=== PATIENT | female | born 1990 | race Caucasian/White ===

== ENCOUNTER 2016-07-14 10:00 | Inpatient (IN) | payer MEDICAID ==
[2016-07-14] VITALS (11 sets, daily range): BP systolic 142–156; BP diastolic 79–106; PULSE 61–90; RESP 18–22; TEMP 98.4; O2SAT 97–99
[~2016-07-14 10:00] MED LIST: LEVEMIR SC; METF500 PO; NOVOLOGP2 SQ
[2016-07-14] MEDS ORDERED: LACTATED RINGER'S 1000 ML INJ 1,000 ML IV ONE (10:12)
[2016-07-14] MEDS ORDERED: OXYTOCIN 10 UNIT/ML AMP ONE (10:22)
--- NOTE | 2016-07-14 10:24 | HHI.HP ---
HPI Chief Complaint vaginal bleeding Date Seen: Jul 14, 2016 Time Seen: 10:02 (Trey Henry MD R1) Travel History International Travel<30 Days: No Contact w/Intl Traveler<30Days: No (Trey Henry MD R1) History of Present Illness HPI 26 y/o at 37/2 weeks presents with vaginal bleeding. She was in ultrasound this morning for kick monitoring and when she went to the bathroom, there was a gush of blood. No history of previous vaginal bleeding. Experiencing severe pelvic pain/pressure. Denies any other symptoms. Endorses movement. No contractions. No loss of fluids. No problems with this . History of diabetes. 3 miscarriages, all around 8 weeks gestation. Denies headache, changes in vision, swelling in legs, chest pain, SOB , upper abdominal pain. Para: 0 : 4 Miscarriage: 3 (Trey Henry MD) History Past Medical History Narrative Medical Diabetes (Trey Henry MD) Obstetric History Obstetric History Previous three pregnancies were miscarriages around 8 weeks. No problems with this (Trey Henry MD) Past Surgical History Surgical History: No Previous Surgery (Trey Henry MD) Family History Family History: Negative (Trey Henry MD) Social History Alcohol Use: No Tobacco Use: No Substance Abuse: No (Trey Henry MD R1) Allergies-Medications (Allergen,Severity, Reaction): Coded Allergies: No Known Allergies (Unverified , 11/25/15) Home Meds Reported Medications Insulin Aspart (Novolog)100 Units/ML Inj1 Units SQ TIDAC 11/25/15 Insulin Detemir (Levemir) Inj10 Units SC HS 11/25/15 Metformin 500 mg (Glucophage 500 mg)500 Mg Txs128 Mg PO DAILY 09/05/15 Review of Systems General / Constitutional: Weight Gain, No: Fever, Weight Loss, Chills Eyes: No: Blurred Vision, Visual changes HENT: No: Headaches, Lightheadedness Cardiovascular: No: Irregular Rhythm, Chest Pain or Discomfort, Palpitations Respiratory: No: Cough, Short of Breath Gastrointestinal: No: Nausea, Vomiting, Diarrhea, Abdominal Pain, Constipation Genitourinary: Pelvic Pain, No: Urgency, Frequency, Dysuria, Hematuria Musculoskeletal: Cramping, No: Weakness Skin: No Rash, No Itching Neurologic: No: Weakness, Dizziness Psychiatric: No: Anxiety, Depression Endocrine: No: Heat Intolerance, Cold Intolerance Hematologic/Lymphatic: No Easy Bruising, No Lymph Node Enlargement (Trey Henry MD R1) Physical Exam Narrative GENERAL: Well-nourished, well-developed patient. SKIN: Warm and dry. HEAD: Normocephalic and atraumatic. EYES: No scleral icterus. No injection or drainage. ENT: No nasal drainage noted. Mucous membranes pink. Airway patent. NECK: Supple, trachea midline. No JVD. CARDIOVASCULAR: Regular rate and rhythm without murmurs, gallops, or rubs. RESPIRATORY: Breath sounds equal bilaterally. No accessory muscle use. ABDOMEN/GI: Abdomen soft, non-tender, bowel sounds present, no rebound, no guarding Gravid to 37 weeks size Fundal Height: 37 GENITOURINARY: External Genitalia: intact and normal in appearance. Alan blood. No active bleeding FHT's: Category: 1 Baseline: 140 Reactive: yes Variability: moderate Decels: none EXTREMITIES: No cyanosis or edema. BACK: Nontender without obvious deformity. No CVA tenderness. NEUROLOGICAL: Awake and alert. Motor and sensory grossly within normal limits. Five out of 5 muscle strength in all muscle groups. Normal speech. (Trey Henry MD R1) Data Data Vital Signs Reviewed: Yes Orders Ob (2e) Additional Admit Info (07/14/16 10:14) Admit To Inpatient (07/14/16 ) Code Status (07/14/16 10:12) Vital Signs (Adult) .ON ADMISSION (07/14/16 10:12) Activity Oob Ad Chela (07/14/16 10:12) ^ Heart (07/14/16 10:12) Urinary Catheter Management ESMER.Q8H (07/14/16 10:12) ^ Preps (07/14/16 10:12) Scd / Audie / Foot Pump ESMER.QSHIFT (07/14/16 10:12) ^ Ultrasound For Locatio (07/14/16 10:12) Diet Npo (07/14/16 Lunch) Lactated Ringer's 1000 Ml Inj (Lr 1000 M (07/14/16 10:12) Lactated Ringer's 1000 Ml Inj (Lr 1000 M (07/14/16 10:42) Citric Acid-Sodium Citrate Liq (Bicitra (07/14/16 11:45) Type And Screen (07/14/16 10:12) Complete Blood Count With Diff (07/14/16 10:12) Urinalysis - C+S If Indicated (07/14/16 10:12) Cefazolin Inj (Ancef Inj) (07/14/16 11:15) Inpatient Certification (07/14/16 ) (Trey Henry MD R1) Assessment/Plan Assessment and Plan 26 y/o at 37/2 weeks presents with vaginal bleeding. 1. IUP with placental abruption - POC ultrasound - Urgent primary - heart monitoring - CBC, UA, UDS sdw Dr. Sapp (Trey Henry MD R1) Attending Attestation Patient seen and examined with the resident under direct supervision agree with the assessment and plan. (Keron Sapp MD) Trey Henry MD R1 Jul 14, 2016 10:24 Keron Sapp MD Jul 14, 2016 17:36
[2016-07-14] MEDS ORDERED: ceFAZolin INJ 1,000 MG VIAL ONE (10:27)
[2016-07-14 10:40] LABS: AUTOMATED NEUTROPHIL # 7.8 TH/MM3 (1.8-7.7); BASOPHIL % 0.5 % (0.0-2.0); EOSINOPHIL # 0.1 TH/MM3 (0-0.4); EOSINOPHIL % 0.7 % (0.0-4.0); HEMATOCRIT 38.8 % (35.0-46.0); HEMO FLAGS DIFF FINAL; LYMPH % 19.7 % (9.0-44.0); LYMPHOCYTE # 2.1 TH/MM3 (1.0-4.8); MEAN CELL VOLUME 83.5 FL (80.0-100.0); MEAN CORPUSCULAR HEMOGLOBIN 28.2 PG (27.0-34.0); MEAN CORPUSCULAR HGB CONC 33.8 % (32.0-36.0); MONO % 6.1 % (0.0-8.0); PLATELET COUNT 345 TH/MM3 (150-450); RED BLOOD COUNT 4.64 MIL/MM3 (4.00-5.30); WHITE BLOOD COUNT 10.7 TH/MM3 (4.0-11.0)
[2016-07-14] MEDS ORDERED: LACTATED RINGER'S 1000 ML INJ 1,000 ML IV SCH ×2 (10:42→16:44)
--- NOTE | 2016-07-14 10:42 | PD ---
History of Present Illness Date Seen: Jul 14, 2016 Time Seen: 10:03 History of Present Illness HPI Chief Complaint vaginal bleeding Date Seen: Jul 14, 2016 Time Seen: 10:02 Travel History International Travel<30 Days: No Contact w/Intl Traveler<30Days: No History of Present Illness HPI 26 y/o at 37/2 weeks presents with vaginal bleeding. She was in ultrasound this morning for kick monitoring and when she went to the bathroom, there was a gush of blood. No history of previous vaginal bleeding. Experiencing severe pelvic pain/pressure. Denies any other symptoms. Endorses movement. No contractions. No loss of fluids. No problems with this . History of diabetes. 3 miscarriages, all around 8 weeks gestation. Denies headache, changes in vision, swelling in legs, chest pain, SOB , upper abdominal pain. Para: 0 : 4 Miscarriage: 3 History (Limited) History Past Medical History Narrative Medical Diabetes Obstetric History Obstetric History Previous three pregnancies were miscarriages around 8 weeks. No problems with this Past Surgical History Surgical History: No Previous Surgery Family History Family History: Negative Social History Alcohol Use: No Tobacco Use: No Substance Abuse: No Allergies-Medications Allergies-Medications (Allergen,Severity, Reaction): Coded Allergies: No Known Allergies (Unverified , 11/25/15) Home Meds Reported Medications Insulin Aspart (Novolog)100 Units/ML Inj1 Units SQ TIDAC 11/25/15 Insulin Detemir (Levemir) Inj10 Units SC HS 11/25/15 Metformin 500 mg (Glucophage 500 mg)500 Mg [id number] Mg PO DAILY 09/05/15 ROS Review of Systems General / Constitutional: Weight Gain, No: Fever, Weight Loss, Chills Eyes: No: Blurred Vision, Visual changes HENT: No: Headaches, Lightheadedness Cardiovascular: No: Irregular Rhythm, Chest Pain or Discomfort, Palpitations Respiratory: No: Cough, Short of Breath Gastrointestinal: No: Nausea, Vomiting, Diarrhea, Abdominal Pain, Constipation Genitourinary: Pelvic Pain, No: Urgency, Frequency, Dysuria, Hematuria Musculoskeletal: Cramping, No: Weakness Skin: No Rash, No Itching Neurologic: No: Weakness, Dizziness Psychiatric: No: Anxiety, Depression Endocrine: No: Heat Intolerance, Cold Intolerance Hematologic/Lymphatic: No Easy Bruising, No Lymph Node Enlargement Physical Exam Physical Exam Narrative GENERAL: Well-nourished, well-developed patient. SKIN: Warm and dry. HEAD: Normocephalic and atraumatic. EYES: No scleral icterus. No injection or drainage. ENT: No nasal drainage noted. Mucous membranes pink. Airway patent. NECK: Supple, trachea midline. No JVD. CARDIOVASCULAR: Regular rate and rhythm without murmurs, gallops, or rubs. RESPIRATORY: Breath sounds equal bilaterally. No accessory muscle use. ABDOMEN/GI: Abdomen soft, non-tender, bowel sounds present, no rebound, no guarding Gravid to 37 weeks size Fundal Height: 37 GENITOURINARY: External Genitalia: intact and normal in appearance. Alan blood. No active bleeding FHT's: Category: 1 Baseline: 140 Reactive: yes Variability: moderate Decels: none EXTREMITIES: No cyanosis or edema. BACK: Nontender without obvious deformity. No CVA tenderness. NEUROLOGICAL: Awake and alert. Motor and sensory grossly within normal limits. Five out of 5 muscle strength in all muscle groups. Normal speech. Data Data Data Vital Signs Reviewed: Yes Orders Ob (2e) Additional Admit Info (07/14/16 10:14) Admit To Inpatient (07/14/16 ) Code Status (07/14/16 10:12) Vital Signs (Adult) .ON ADMISSION (07/14/16 10:12) Activity Oob Ad Chela (07/14/16 10:12) ^ Heart (07/14/16 10:12) Urinary Catheter Management ESMER.Q8H (07/14/16 10:12) ^ Preps (07/14/16 10:12) Scd / Audie / Foot Pump ESMER.QSHIFT (07/14/16 10:12) ^ Ultrasound For Locatio (07/14/16 10:12) Diet Npo (07/14/16 Lunch) Lactated Ringer's 1000 Ml Inj (Lr 1000 M (07/14/16 10:12) Lactated Ringer's 1000 Ml Inj (Lr 1000 M (07/14/16 10:42) Citric Acid-Sodium Citrate Liq (Bicitra (07/14/16 11:45) Type And Screen (07/14/16 10:12) Complete Blood Count With Diff (07/14/16 10:12) Urinalysis - C+S If Indicated (07/14/16 10:12) Cefazolin Inj (Ancef Inj) (07/14/16 11:15) Inpatient Certification (07/14/16 ) OB Assessment/Plan Assessment/Plan Assessment and Plan 26 y/o at 37/2 weeks presents with vaginal bleeding. 1. IUP with placental abruption - POC ultrasound - Urgent primary - heart monitoring - CBC, UA, UDS sdw Dr. Sapp (Trey Henry MD R1) Attestation Patient seen and examined with the resident under direct supervision, I agree with the assessment and plan. (Keron Sapp MD) Trey Henry MD R1 Jul 14, 2016 10:42 Keron Sapp MD Jul 14, 2016 17:38
[2016-07-14 10:46] LABS: BACTERIA, URINE RARE /hpf; BLOOD, URINE LARGE (NEG); GLUCOSE,URINE 1000 mg/dL (NEG); KETONE, URINE 10 mg/dL (NEG); NITRITE,URINE NEG (NEG); PH, URINE 6.5 (5.0-8.5); SQUAMOUS EPITHELIAL CELL URINE 1 /hpf (0-5); URINE COLOR YELLOW (YELLW/STRAW)
[2016-07-14 10:50] LABS: COMMENT (UR) CULTURE INDICATED; CULTURE IF INDICATED CULTURE INDICATED
[2016-07-14] MEDS ORDERED: ACETAMINOPHEN 1000 MG/100 ML VIAL IV ONE ×2 (10:52→11:45)
[2016-07-14 10:58] LABS: AMPHETAMINE, URINE NEG (NEG); BARBITURATES, URINE NEG (NEG); COCAINE, URINE NEG (NEG)
[2016-07-14 11:30] LABS: BLOOD GAS BASE EXCESS 0.2 mmol/L (-2-2); BLOOD GAS O2 HGB SATURATION 13 % (90-100); CORD BLOOD GAS HCO3 27 mmol/L (21-29); CORD BLOOD GAS PCO2 68 mmHG (34-78); CORD BLOOD GAS PH 7.22 (7.14-7.42)
[2016-07-14 11:31] LABS: CORD BLOOD GAS PO2 12 mmHG (3.0-40.0); DRAW SITE CORD BLOOD; STAT NO
[2016-07-14] MEDS ORDERED: ONDANSETRON HCL 4 MG/2 ML VIAL ONE (11:39)
[2016-07-14] MEDS ORDERED: MORPHINE SULFATE PF 5 MG/10 ML VIAL ONE (11:39)
[2016-07-14] MEDS ORDERED: SODIUM CHLORIDE 0.9% FLUSH 5 ML FLUSH IV PRN (11:45)
[2016-07-14] MEDS ORDERED: OXYTOCIN 30 UNITS-500ML PREMIX 500 ML IV ONE (11:45)
[2016-07-14] MEDS ORDERED: CITRIC ACID-SODIUM CITRATE LIQ 30 ML UDC PO SCH (11:45)
[2016-07-14] MEDS ORDERED: oxyCODONE/ACETAMINOPHEN 5 MG/325 MG TAB PO PRN (11:45)
[2016-07-14] MEDS: SODIUM CHLORIDE 0.9% FLUSH 5 ML FLUSH IV SCH ×2 (11:45→20:05)
[2016-07-14] MEDS ORDERED: ACETAMINOPHEN 325 MG TAB PO PRN (11:45)
[2016-07-14] MEDS ORDERED: DEXTROSE 50% IN WATER 50 ML VIAL(D50) IV PUSH PRN (12:00)
[2016-07-14] MEDS ORDERED: GLUCAGON 1 MG/ML VIAL OTHER PRN (12:00)
[2016-07-14] MEDS ORDERED: KETOROLAC TROMETHAMINE 60 MG/2 ML (IM) VIAL IM PRN (12:00)
[2016-07-14] MEDS ORDERED: OXYTOCIN 30 UNITS-500ML PREMIX 500 ML ONE (12:14)
[2016-07-14 12:27] LABS: ANION GAP 8 MEQ/L (5-15); AST (GOT) 10 U/L (15-37); BICARBONATE 24.8 MEQ/L (21.0-32.0); BLOOD UREA NITROGEN 11 MG/DL (7-18); CHLORIDE 102 MEQ/L (98-107); GLOMERULAR FILTRATION RATE 108 ML/MIN (>89); POTASSIUM 4.3 MEQ/L (3.5-5.1); SODIUM (NA) 135 MEQ/L (136-145)
[2016-07-14 12:35] LABS: ALKALINE PHOSPHATASE 108 U/L (45-117); ALT (GPT) 14 U/L (10-53); TOTAL BILIRUBIN ADULT 0.1 MG/DL (0.2-1.0)
[2016-07-14] MEDS: LABETALOL HCL 200 MG TAB PO SCH (13:00)
--- NOTE | 2016-07-14 13:02 | PD.OP ---
Operative Report Date of Surgery: Jul 14, 2016 Preoperative Diagnosis: (1) 37 weeks gestation of (2) Type 2 diabetes mellitus treated with insulin (3) Placental abruption in third trimester (4) Obesity affecting in third trimester 26-year-old at 37 weeks and 2 days of gestation presents to labor and delivery with complaints of sudden onset of profuse vaginal bleeding and abdominal pain consistent with possible abruption placenta, type 2 diabetes on insulin, obesity. Postoperative Diagnosis: (1) 37 weeks gestation of (2) Type 2 diabetes mellitus treated with insulin (3) Placental abruption in third trimester (4) Obesity affecting in third trimester Same Procedure: Primary low segment transverse section via Pfannenstiel skin incision. Anesthesia: Spinal Anesthesiologist: Luis Angel ([employer]) Surgeon: Keron Sapp M.D Siphoner(s): Rosemary (technical associate) Resident Surgeon: None Operation and Findings: Estimated blood loss: 700 mL, urine output is 350 mL of clear urine at the end of the procedure, IV fluids 2400 mL of Ringer's lactate. Complications: none Specimen: Placenta is sent to pathology Findings: A live male in cephalic presentation, Apgars 8 at 1 minute and 9 at 5 minutes, nursery team present at delivery, weight is 8 lbs. 3 oz., 3705 grams. There is blood present in the abdominal cavity, an area of detached placenta with blood clots is noted consistent with abruption. Normal uterus, tubes and ovaries. Time of delivery 10.59 hours Indications: 26-year-old at 37 weeks and 2 days of gestation, patient presented today to OB diagnostics for ultrasound and was noted to have sudden onset of profuse vaginal bleeding patient was transferred to labor and delivery , patient also complaining of severe abdominal pain associated with vaginal bleeding, a presumptive diagnosis of placenta abruption was made and the need for a primary section was discussed with the patient and the family.The risks,benefits, indications and alternatives were reviewed with the patient including but not limited to increased risks of bleeding, infection, damage to the bladder, bowel, ureters, blood vessels and nerves. Increased risks of DVT and PE and risk of were discussed, all questions were answered and informed consent was obtained. Procedures: After informed consent was obtained the patient was taken to the operating room where spinal anesthesia was obtained without difficulty. She was then prepped and draped in the normal sterile fashion in the dorsal supine position with a leftward tilt. A Pfannenstiel skin incision was then made with the scalpel and carried through to the underlying layer of fascia with the Bovie. The fascia was incised in the midline and incision extended laterally with the Wolfe scissors. The superior aspect of the fascial incision was then grasped with Sherron clamps, elevated, and the underlying rectus muscles dissected off bluntly. Attention was then turned to the inferior aspect of this incision which in in a similar fashion was grasped, tented up with the Sherron clamps and the rectus muscle dissected off bluntly. The rectus muscles were then in the midline and the peritoneum identified, tented up, and entered sharply with the Metzenbaum scissors. The peritoneal incision was then extended superiorly and inferiorly with good visualization of the bladder. Intraperitoneal blood was noted. The bladder blade was then inserted and the vesicouterine peritoneum identified, grasped with the pickups, and entered sharply with the Metzenbaum scissors. This incision was then extended laterally and the bladder flap created digitally. The bladder blade was then reinserted and the lower uterine segment incised in a transverse fashion with the scalpel. The uterine incision was then extended laterally with the bandage scissors. The bladder blade was removed and the infant's head was delivered atraumatically. The mouth and nose were suctioned with a bulb suction and the cord was clamped and cut. The infant was handed off to the waiting nursing team. Cord blood was obtained. The placenta was then removed manually, the uterus was externalized and cleared of all clots and debris. An area of abruption was noted on the placental surface with several blood clots, the placenta was sent to pathology. The uterine incision was then repaired with 0 Vicryl in a running locked fashion. A second layer of the same suture was used to obtain excellent hemostasis. The bladder flap was repaired with 3-0 Vicryl in a running stitch. Excellent hemostasis was noted, the uterus and the tubes were then returned to the abdomen. The gutters were cleared of all clots and debris and the peritoneum was closed with the 2-0 chromic suture. The fascia was reapproximated with 0 Vicryl in a running fashion. The skin was closed in a subcuticular fashion using 3-0 Monocryl. Dermabond was applied to the incision as well as Steri-Strips. The patient tolerated the procedure well. All sponges, laps, needle and instrument counts were correct 2. The patient received 2 g of Ancef prior to surgery. The patient was taken to the recovery area in stable condition. Keron Sapp MD Jul 14, 2016 13:02
[2016-07-14] MEDS: EPIDURAL-DIPHENHYDRAMINE HCL 50 MG CAP PO PRN (16:28)
[2016-07-14] MEDS: INSULIN NovoLIN REGULAR SUPPLEMENTAL SCALE SQ SCH ×2 (16:28→21:00)
[2016-07-14] MEDS ORDERED: EPIDURAL-NO SYSTEMIC NARCOTICS XX PRN (16:30)
[2016-07-14] MEDS ORDERED: EPIDURAL-DIPHENHYDRAMINE HCL 50 MG/ML VIAL IV PUSH PRN (16:30)
[2016-07-14] MEDS ORDERED: EPIDURAL-DO NOT ADMINISTER ANTICOAGULANTS XX PRN (16:30)
[2016-07-14] MEDS ORDERED: EPIDURAL-NALOXONE HCL 0.4 MG/ML AMP IV PRN (16:30)
[2016-07-14 16:56] LABS: HEMOGLOBIN A1a 1.2 %; HEMOGLOBIN A1b 1.1 %; HEMOGLOBIN F 1.7 %; HEMOGLOBIN LA1C 3.7 %; HEMOGLOBIN P3 5.2 %
--- NOTE | 2016-07-14 17:28 | PD.CONS ---
[facility] By [facility] Powell Reason for Consult Diabetes mellitus type 2 status post Primary Care Physician No Primary Care Physician Diagnoses: History of Present Illness This is a pleasant 26-year-old female patient with a past medical history which includes diabetes mellitus type 2. Patient is status post section 07/14 at 1302. Patient reports her blood sugar was well-controlled at home fasting blood glucose between 80 and 90 and 2 hour postprandial glucose 100- 120. Patient reports she was taking insulin at home both Novolin R and Novolin N at home. Patient reports she took 18 units of Novolin R and 18 units of Novolin and with breakfast, 16 units of Novolin R with lunch then 12 units of Novolin R and 26 units Novolin N with dinner. Patient reports she feels well at this time she had a mild headache which resolved after Toradol. Patient's blood sugar earlier this a.m. at 10:30 was noted to be 320 recheck 1600 noted to be 165 per RN patient did not receive any glucose treatment. Patient denies chest pain shortness of breath abdominal pain diarrhea constipation fevers or chills. Review of Systems Other All other systems reviewed and negative except as mentioned in history of present illness Past Family Social History Allergies: Coded Allergies: No Known Allergies (Unverified , 11/25/15) Past Medical History Diabetes mellitus type 2 Past Surgical History Denies prior surgeries Reported Medications Novolog (Insulin Aspart) 100 Units/ML Inj 1 Units SQ TIDAC Levemir (Insulin Detemir) Inj 10 Units SC HS Active Ordered Medications Current Medications Medications (Trade) Dose Ordered Sig/Rosetta Route Start Time Stop Time Status Last Admin Lactated Ringer's 1,000 ml @ 150 mls/hr Q6H40M IV 07/14/16 10:42 (Lr 1000 ml Inj) 1,000 ml @ 100 mls/hr Q10H IV 07/14/16 16:44 07/15/16 12:43 (NS Flush) 2 ml BID IV 07/14/16 11:45 (NS Flush) 2 ml UNSCH PRN IV 07/14/16 11:45 (Tylenol) 650 mg Q6H PRN PO 07/14/16 11:45 (Motrin) 600 mg Q6H PRN PO 07/14/16 11:45 (Toradol Inj) 30 mg Q6H PRN IM 07/14/16 12:00 07/15/16 11:59 07/14/16 15:14 (Percocet 5-325 Mg) 1 tab Q4H PRN PO 07/14/16 11:45 Oxycodone/ Acetaminophen 2 tab 2 tab Q4H PRN PO 07/14/16 11:45 (Ancef Inj/NS Inj) 100 ml @ 200 mls/hr Q8H IV 07/14/16 19:00 07/15/16 03:29 (M-M-R Ii Inj) 0.5 ml ONCE ONCE SQ 07/15/16 16:00 07/15/16 16:01 (Boostrix Inj) 0.5 ml ONCE ONCE IM 07/15/16 16:00 07/15/16 16:01 (Zofran Inj) 4 mg Q6H PRN IV PUSH 07/14/16 11:45 (D50w (Vial) Inj) 25 ml UNSCH PRN IV PUSH 07/14/16 12:00 (Glucagon Inj) 1 mg UNSCH PRN OTHER 07/14/16 12:00 (Trandate) 200 mg Q12H PO 07/14/16 13:00 07/14/16 13:00 Miscellaneous Information NO SYSTEMIC NARCOTICS TO BE GIVEN FO... UNSCH PRN XX 07/14/16 16:30 07/15/16 16:29 (Narcan Inj) 0.4 mg UNSCH PRN IV 07/14/16 16:30 07/15/16 16:29 (Benadryl Inj) 25 mg Q6H PRN IV PUSH 07/14/16 16:30 07/15/16 16:29 (Benadryl) 50 mg Q6H PRN PO 07/14/16 16:30 07/15/16 16:29 07/14/16 16:28 Miscellaneous Information ALL NURSING DEPARTMENTS UNSCH PRN XX 07/14/16 16:30 07/15/16 16:29 (Ofirmev Inj) 1 mg Q8H IV 07/14/16 20:00 07/15/16 04:01 Family History Patient reports all the women in her family have diabetes mellitus including mother and grandmother Social History Prior to patient reports she drank alcohol occasionally she has not EtOH in the past 37 weeks. Denies tobacco use or illicit drug use Physical Exam Vital Signs Vital Signs Date Time Temp Pulse Resp B/P Pulse Ox O2 Delivery O2 Flow Rate FiO2 07/14/16 13:03 62 18 143/97 99 07/14/16 12:55 147/82 07/14/16 12:55 147/92 07/14/16 12:52 98.4 18 148/94 99 07/14/16 12:52 61 148/97 07/14/16 12:33 65 18 99 07/14/16 12:33 143/87 07/14/16 12:33 153/101 07/14/16 12:23 144/95 07/14/16 12:18 149/93 07/14/16 12:18 67 18 97 07/14/16 12:03 67 18 142/91 99 07/14/16 11:54 142/79 07/14/16 10:15 82 154/96 07/14/16 10:12 90 156/106 07/14/16 10:00 22 Physical Exam GENERAL: This is a well-nourished, well-developed patient, in no apparent distress. SKIN: No rashes, ecchymoses or lesions. Cool and dry. HEAD: Atraumatic. Normocephalic. No temporal or scalp tenderness. EYES: Extraocular motions intact. No scleral icterus. No injection or drainage. ENT: Nose without bleeding, purulent drainage or septal hematoma. Throat without erythema, tonsillar hypertrophy or exudate. Uvula midline. Airway patent. NECK: Trachea midline. No JVD or lymphadenopathy. Supple, nontender, no meningeal signs. CARDIOVASCULAR: Regular rate and rhythm without murmurs, gallops, or rubs. RESPIRATORY: Clear to auscultation. Breath sounds equal bilaterally. No wheezes , rales, or rhonchi. GASTROINTESTINAL: Abdomen soft, non-tender, nondistended. No guarding. MUSCULOSKELETAL: Extremities without clubbing, cyanosis, or edema. No joint tenderness, effusion, or edema noted. No calf tenderness. Negative Homans sign bilaterally. NEUROLOGICAL: Awake and alert. Motor and sensory grossly within normal limits. Five out of 5 muscle strength in all muscle groups. Normal speech. Laboratory Laboratory Tests Test 07/14/16 07/14/16 10:30 10:57 White Blood Count 10.7 Red Blood Count 4.64 Hemoglobin 13.1 Hematocrit 38.8 Mean Corpuscular Volume 83.5 Mean Corpuscular Hemoglobin 28.2 Mean Corpuscular Hemoglobin 33.8 Concent Red Cell Distribution Width 13.0 Platelet Count 345 Mean Platelet Volume 8.5 Neutrophils (%) (Auto) 73.0 Lymphocytes (%) (Auto) 19.7 Monocytes (%) (Auto) 6.1 Eosinophils (%) (Auto) 0.7 Basophils (%) (Auto) 0.5 Neutrophils # (Auto) 7.8 Lymphocytes # (Auto) 2.1 Monocytes # (Auto) 0.7 Eosinophils # (Auto) 0.1 Basophils # (Auto) 0.0 CBC Comment DIFF FINAL Differential Comment Urine Color YELLOW Urine Turbidity CLEAR Urine pH 6.5 Urine Specific [place] 1.026 Urine Protein NEG Urine Glucose (UA) 1000 Urine Ketones 10 Urine Occult Blood LARGE Urine Nitrite NEG Urine Bilirubin NEG Urine Urobilinogen LESS THAN 2.0 Urine Leukocyte Esterase NEG Urine RBC Urine WBC 13 Urine Squamous Epithelial 1 Cells Urine Bacteria RARE Microscopic Urinalysis Comment CULTURE INDICATED Sodium Level 135 Potassium Level 4.3 Chloride Level 102 Carbon Dioxide Level 24.8 Anion Gap 8 Blood Urea Nitrogen 11 Creatinine 0.67 Estimat Glomerular Filtration 108 Rate Random Glucose 320 Calcium Level 9.7 Total Bilirubin 0.1 Aspartate Amino Transf 10 (AST/SGOT) Alanine Aminotransferase 14 (ALT/SGPT) Alkaline Phosphatase 108 Total Protein 7.1 Albumin 2.6 Urine Opiates Screen NEG Urine Barbiturates Screen NEG Urine Amphetamines Screen NEG Urine Benzodiazepines Screen NEG Urine Cocaine Screen NEG Urine Cannabinoids Screen NEG Blood Type A POSITIVE Antibody Screen NEGATIVE Blood Bank Comment Blood Gas Puncture Site CORD BLOOD Blood Gas Base Excess 0.2 Blood Gas Oxygen Saturation 13 Cord Blood HCO3 27 Cord Arterial Blood pH 7.22 Cord Arterial Blood PCO2 68 Cord Arterial Blood PO2 12 Date/Time Procedure Status Source Growth 07/14/16 10:30 Urine Culture Received Urine Clean Catch Pending Result Diagram: 07/14/16 1030 07/14/16 1030 Assessment and Plan Assessment and Plan This is a pleasant 26-year-old female patient with a past medical history which includes diabetes mellitus type 2. Patient is status post section 07/14 at 1302. Patient reports her blood sugar was well-controlled at home fasting blood glucose between 80 and 90 and 2 hour postprandial glucose 100- 120. Patient reports she was taking insulin at home both Novolin R and Novolin N at home. Patient reports she took 18 units of Novolin R and 18 units of Novolin and with breakfast, 16 units of Novolin R with lunch then 12 units of Novolin R and 26 units Novolin N with dinner. Patient reports she feels well at this time she had a mild headache which resolved after Toradol. Patient's blood sugar earlier this a.m. at 10:30 was noted to be 320 recheck 1600 noted to be 165 per RN patient did not receive any glucose treatment. management per primary [employer] service Diabetes mellitus type 2- agree with and continue metered dose sliding scale insulin coverage Check hemoglobin A1c Thank you for consulted us and allowing us to dissipate in the care of this patient we will follow along with you Discussed plan of care with patient and at bedside Written by Bing Moya, acting as scribe for Dr. Watson on 07/14/16 at 17:28. The documentation accurately reflects the work performed [id number] by me on 07/14/16 at 17:28. Bing Moya Jul 14, 2016 17:28 Nitin Medrano MD Jul 31, 2016 11:05
[2016-07-14] MEDS: ONDANSETRON HCL 4 MG/2 ML VIAL IV PUSH PRN (18:25)
[2016-07-14] MEDS: ACETAMINOPHEN 1000 MG/100 ML VIAL IV SCH (20:05)
[2016-07-14] MEDS ORDERED: OXYTOCIN 30 UNITS-500ML PREMIX 500 ML IV PRN (21:45)
[2016-07-15] MEDS: LABETALOL HCL 200 MG TAB PO SCH ×2 (00:49→13:00)
[2016-07-15] MEDS: ACETAMINOPHEN 1000 MG/100 ML VIAL IV SCH (03:36)
[2016-07-15] MEDS: EPIDURAL-DIPHENHYDRAMINE HCL 50 MG CAP PO PRN ×2 (03:36→13:36)
[2016-07-15 06:08] LABS: AUTOMATED NEUTROPHIL # 8.1 TH/MM3 (1.8-7.7); BASOPHIL # 0.1 TH/MM3 (0-0.2); BASOPHIL % 0.6 % (0.0-2.0); EOSINOPHIL # 0.1 TH/MM3 (0-0.4); EOSINOPHIL % 0.7 % (0.0-4.0); HEMO FLAGS DIFF FINAL; LYMPH % 17.2 % (9.0-44.0); LYMPHOCYTE # 1.9 TH/MM3 (1.0-4.8); MEAN CELL VOLUME 83.7 FL (80.0-100.0); MEAN CORPUSCULAR HEMOGLOBIN 27.8 PG (27.0-34.0); MEAN CORPUSCULAR HGB CONC 33.2 % (32.0-36.0); MONO % 8.4 % (0.0-8.0); NEUT % 73.1 % (16.0-70.0); PLATELET COUNT 274 TH/MM3 (150-450); RED BLOOD COUNT 3.83 MIL/MM3 (4.00-5.30); WHITE BLOOD COUNT 11.1 TH/MM3 (4.0-11.0)
[2016-07-15] MEDS: INSULIN NovoLIN REGULAR SUPPLEMENTAL SCALE SQ SCH ×3 (07:00→20:58)
--- NOTE | 2016-07-15 07:18 | HHI.OB ---
Subjective Remarks 26 year old POD # 1, delivered via emergency for placental abruption. No events overnight. She is resting in bed. She has generalized itching improved with benadryl. She reports that none of the medications she is getting is new for her. She does not feel any throat swelling and has no rash. Lochia is amount of menstruation. control: uncertain at this time. Pain well controlled. Incision site has no problems. She is walking. No flatus or bowel movement. Nausea resolved. (Diaz Rachel MD R2) Objective Vitals/I&O Vital Signs Date Time Temp Pulse Resp B/P Pulse Ox O2 Delivery O2 Flow Rate FiO2 07/14/16 21:15 18 07/14/16 13:03 62 18 143/97 99 07/14/16 12:55 147/82 07/14/16 12:55 147/92 07/14/16 12:52 98.4 18 148/94 99 07/14/16 12:52 61 148/97 07/14/16 12:33 65 18 99 07/14/16 12:33 143/87 07/14/16 12:33 153/101 07/14/16 12:23 144/95 07/14/16 12:18 149/93 07/14/16 12:18 67 18 97 07/14/16 12:03 67 18 142/91 99 07/14/16 11:54 142/79 07/14/16 10:15 82 154/96 07/14/16 10:12 90 156/106 07/14/16 10:00 22 (Diaz Rachel MD R2) Result Diagram: 07/15/16 0444 07/14/16 1030 Objective Remarks GENERAL: Well-nourished, well-developed patient. CARDIOVASCULAR: Regular rate and rhythm without murmurs, gallops, or rubs. RESPIRATORY: Breath sounds equal bilaterally. No accessory muscle use. ABDOMEN/GI: Abdomen soft, non-tender, bowel sounds present. Incision: Clean, dry and intact. Fundus: Firm, non-tender at umbilicus. GENITOURINARY: Light to moderate bleeding. EXTREMITIES: No cyanosis or edema, non-tender, without signs of DVT. Medications and IVs Current Medications Medications (Trade) Dose Ordered Sig/Rosetta Route Start Time Stop Time Status Last Admin Lactated Ringer's 1,000 ml @ 150 mls/hr Q6H40M IV 07/14/16 10:42 (Lr 1000 ml Inj) 1,000 ml @ 100 mls/hr Q10H IV 07/14/16 16:44 07/15/16 12:43 07/14/16 18:17 (NS Flush) 2 ml BID IV 07/14/16 11:45 (NS Flush) 2 ml UNSCH PRN IV 07/14/16 11:45 (Tylenol) 650 mg Q6H PRN PO 07/14/16 11:45 (Motrin) 600 mg Q6H PRN PO 07/14/16 11:45 (Toradol Inj) 30 mg Q6H PRN IM 07/14/16 12:00 07/15/16 11:59 07/14/16 15:14 (Percocet 5-325 Mg) 1 tab Q4H PRN PO 07/14/16 11:45 (Percocet 5-325 Mg) 2 tab Q4H PRN PO 07/14/16 11:45 (M-M-R Ii Inj) 0.5 ml ONCE ONCE SQ 07/15/16 16:00 07/15/16 16:01 (Boostrix Inj) 0.5 ml ONCE ONCE IM 07/15/16 16:00 07/15/16 16:01 (Zofran Inj) 4 mg Q6H PRN IV PUSH 07/14/16 11:45 07/14/16 18:25 (D50w (Vial) Inj) 25 ml UNSCH PRN IV PUSH 07/14/16 12:00 (Glucagon Inj) 1 mg UNSCH PRN OTHER 07/14/16 12:00 (Trandate) 200 mg Q12H PO 07/14/16 13:00 07/15/16 00:49 Miscellaneous Information NO SYSTEMIC NARCOTICS TO BE GIVEN FO... UNSCH PRN XX 07/14/16 16:30 07/15/16 16:29 (Narcan Inj) 0.4 mg UNSCH PRN IV 07/14/16 16:30 07/15/16 16:29 (Benadryl Inj) 25 mg Q6H PRN IV PUSH 07/14/16 16:30 07/15/16 16:29 (Benadryl) 50 mg Q6H PRN PO 07/14/16 16:30 07/15/16 16:29 07/15/16 03:36 Miscellaneous Information ALL NURSING DEPARTMENTS UNSCH PRN XX 07/14/16 16:30 07/15/16 16:29 (Diaz Rachel MD R2) Assessment/Plan Assessment and Plan 26 y/o POD 1 for emergency for placental abruption. - Pain control with ibuprofen and Percocet - Continue discussion about control - Follow up with OB within a week - Post-op hemoglobin is 10.6 from 13.1, monitor - Encourage - Monitor lochia Discuss with Dr. Rubio (Diaz Rachel MD R2) Attending Attestation Patient seen and examined with the resident under direct supervision, I agree with the assessment and plan. (Keron Sapp MD) Diaz Rachel MD R2 Jul 15, 2016 07:18 Keron Sapp MD Jul 15, 2016 10:18
[2016-07-15] MEDS: SODIUM CHLORIDE 0.9% FLUSH 5 ML FLUSH IV SCH ×2 (08:16→21:00)
[2016-07-15] MEDS: ONDANSETRON HCL 4 MG/2 ML VIAL IV PUSH PRN (08:16)
[2016-07-15] MEDS: IBUPROFEN 600 MG TAB PO PRN ×2 (11:23→19:54)
--- NOTE | 2016-07-15 12:34 | HHI.PR ---
Subjective Remarks Follow-up diabetes mellitus . Patient appears to be doing well blood sugars are fluctuating as patient is status post section 07/14/2016. Patient offers no specific complaints at this time reports her headache and nausea have resolved Objective Vitals Vital Signs Date Time Temp Pulse Resp B/P Pulse Ox O2 Delivery O2 Flow Rate FiO2 07/14/16 21:15 18 07/14/16 13:03 62 18 143/97 99 07/14/16 12:55 147/82 07/14/16 12:55 147/92 07/14/16 12:52 98.4 18 148/94 99 07/14/16 12:52 61 148/97 07/14/16 12:33 65 18 99 07/14/16 12:33 143/87 07/14/16 12:33 153/101 Result Diagram: 07/15/16 0444 07/14/16 1030 Objective Remarks GENERAL: This is a well-nourished, well-developed patient, in no apparent distress. SKIN: No rashes, ecchymoses or lesions. Cool and dry. HEAD: Atraumatic. Normocephalic. No temporal or scalp tenderness. EYES: Extraocular motions intact. No scleral icterus. No injection or drainage. ENT: Nose without bleeding, purulent drainage or septal hematoma. Throat without erythema, tonsillar hypertrophy or exudate. Uvula midline. Airway patent. NECK: Trachea midline. No JVD or lymphadenopathy. Supple, nontender, no meningeal signs. CARDIOVASCULAR: Regular rate and rhythm without murmurs, gallops, or rubs. RESPIRATORY: Clear to auscultation. Breath sounds equal bilaterally. No wheezes , rales, or rhonchi. GASTROINTESTINAL: Abdomen soft, non-tender, nondistended. No guarding. MUSCULOSKELETAL: Extremities without clubbing, cyanosis, or edema. No joint tenderness, effusion, or edema noted. No calf tenderness. Negative Homans sign bilaterally. NEUROLOGICAL: Awake and alert. Motor and sensory grossly within normal limits. Five out of 5 muscle strength in all muscle groups. Normal speech. A/P Assessment and Plan This is a pleasant 26-year-old female patient with a past medical history which includes diabetes mellitus type 2. Patient is status post section 07/14 at 1302. Patient reports her blood sugar was well-controlled at home fasting blood glucose between 80 and 90 and 2 hour postprandial glucose 100- 120. Patient reports she was taking insulin at home both Novolin R and Novolin N at home. Patient reports she took 18 units of Novolin R and 18 units of Novolin and with breakfast, 16 units of Novolin R with lunch then 12 units of Novolin R and 26 units Novolin N with dinner. Patient reports she feels well at this time she had a mild headache which resolved after Toradol. Patient's blood sugar earlier this a.m. at 10:30 was noted to be 320 recheck 1600 noted to be 165 per RN patient did not receive any glucose treatment. management per primary [employer] service Diabetes mellitus type 2- continue medium dose sliding scale insulin coverage hemoglobin A1c 10.6 Patient medically stable will sign off. 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 Discussed plan of care with patient and at bedside Written by Bing Moya, acting as scribe for Dr. Watson on 07/15/16 at 11:28. Attending Statement The documentation accurately reflects the work performed [id number] by me on at 11:28. Bing Moya Jul 15, 2016 12:34 Nitin Medrano MD Jul 31, 2016 20:15
[2016-07-15] MEDS ORDERED: NOVORP2 SQ (12:36)
[2016-07-15] MEDS ORDERED: MEASLES, MUMPS, RUBELLA VACCINE 0.5 ML VIAL SQ ONE (16:00)
[2016-07-15] MEDS ORDERED: DIPHTH/TETANUS/ACEL PERTUSSIS (BOOSTER) 0.5 ML VIAL/PFS IM ONE (16:00)
[2016-07-15 19:54] VITALS: BP 113/65; PULSE 85; RESP 18; TEMP 97.8
[2016-07-15] MEDS: oxyCODONE/ACETAMINOPHEN 5 MG/325 MG TAB PO PRN ×2 (19:54→23:35)
[2016-07-16 02:00] VITALS: BP 134/88; PULSE 71; RESP 18; TEMP 97.8
[2016-07-16] MEDS: IBUPROFEN 600 MG TAB PO PRN (02:00)
[2016-07-16] MEDS: LABETALOL HCL 200 MG TAB PO SCH ×2 (02:00→13:00)
[2016-07-16] MEDS: oxyCODONE/ACETAMINOPHEN 5 MG/325 MG TAB PO PRN ×2 (06:23→11:46)
[2016-07-16] MEDS: INSULIN NovoLIN REGULAR SUPPLEMENTAL SCALE SQ SCH ×2 (07:21→11:46)
--- NOTE | 2016-07-16 07:32 | HHI.OB ---
Subjective Remarks 26 year old POD 2 after for placental abruption. High blood pressures after delivery, no headache, blurry vision, edema, epigastric pain. BP this morning is 134/88. On labetalol 200 mg q12hrs. Had pain over the incision site this morning, but improved after pain medication. No report of drainage from incision site. Lochia is minimal. Uncertain about control. Had bowel movement. (Diaz Rachel MD R2) Objective Vitals/I&O Vital Signs Date Time Temp Pulse Resp B/P Pulse Ox O2 Delivery O2 Flow Rate FiO2 07/16/16 04:10 18 07/16/16 02:00 134/88 07/16/16 02:00 97.8 71 18 07/16/16 02:00 18 07/15/16 19:54 97.8 85 18 113/65 (Diaz Rachel MD R2) Result Diagram: 07/15/16 0444 07/14/16 1030 Objective Remarks GENERAL: Well-nourished, well-developed patient. CARDIOVASCULAR: Regular rate and rhythm without murmurs, gallops, or rubs. RESPIRATORY: Breath sounds equal bilaterally. No accessory muscle use. ABDOMEN/GI: Abdomen soft, non-tender, bowel sounds present. Incision: Clean, dry and intact. Fundus: Firm, non-tender at umbilicus. GENITOURINARY: Light bleeding. EXTREMITIES: No cyanosis or edema, non-tender, without signs of DVT. Medications and IVs Current Medications Medications (Trade) Dose Ordered Sig/Rosetta Route Start Time Stop Time Status Last Admin (Lr 1000 ml Inj) 1,000 ml @ 150 mls/hr Q6H40M IV 07/14/16 10:42 (NS Flush) 2 ml BID IV 07/14/16 11:45 07/15/16 08:16 (NS Flush) 2 ml UNSCH PRN IV 07/14/16 11:45 (Tylenol) 650 mg Q6H PRN PO 07/14/16 11:45 07/15/16 11:23 (Motrin) 600 mg Q6H PRN PO 07/14/16 11:45 07/16/16 02:00 (Percocet 5-325 Mg) 1 tab Q4H PRN PO 07/14/16 11:45 07/15/16 15:25 (Percocet 5-325 Mg) 2 tab Q4H PRN PO 07/14/16 11:45 07/16/16 06:23 (Zofran Inj) 4 mg Q6H PRN IV PUSH 07/14/16 11:45 07/15/16 08:16 (D50w (Vial) Inj) 25 ml UNSCH PRN IV PUSH 07/14/16 12:00 (Glucagon Inj) 1 mg UNSCH PRN OTHER 07/14/16 12:00 (Trandate) 200 mg Q12H PO 07/14/16 13:00 07/16/16 02:00 (Diaz Rachel MD R2) Assessment/Plan Assessment and Plan 26 y/o POD 2 for emergency for placental abruption. - Pain control with ibuprofen and Percocet - Continue discussion about control - Follow up with OB within 2 to 3 days for high blood pressures - Continue Labetalol 200 mg q12hrs - If any headache, blurry vision, epigastric pain, swelling, report to doctor right away - Diabetes: continue sliding scale insulin - Encourage - Monitor lochia Discuss with OB attending (Diaz Rachel MD R2) Attending Attestation Patient seen and evaluated with resident under direct supervision, agree with assessment and plan. (Luis Angel Shipley MD) Diaz Rachel MD R2 Jul 16, 2016 07:32 Luis Angel Shipley MD Jul 16, 2016 08:49
[2016-07-16] MEDS ORDERED: OXYC1TAB63 PO (07:38)
[2016-07-16] MEDS ORDERED: IBUP-232 PO (07:38)
[2016-07-16] MEDS ORDERED: LABE200T2 PO (07:38)
--- NOTE | 2016-07-16 07:38 | HHI.DCPOC ---
Discharge Care Plan Diagnosis: (1) Status post Goals to Promote Your Health * To prevent worsening of your condition and complications * To maintain your health at the optimal level Directions to Meet Your Goals Take your medications as prescribed Follow your dietary instruction Follow activity as directed Keep your appointments as scheduled Take your immunizations and boosters as scheduled If your symptoms worsen call your PCP, if no PCP go to Urgent Care Center or Emergency Room Smoking is Dangerous to Your Health. Avoid second hand smoke Call the 24-hour hour crisis hotline for domestic abuse at Diaz Rachel MD R2 Jul 16, 2016 07:38 Luis Angel Shipley MD Jul 16, 2016 08:48
[2016-07-16 08:00] VITALS: BP 124/79; PULSE 77; RESP 18; TEMP 98.3
--- NOTE | 2016-07-16 08:11 | HHI.PR ---
Addendum to Inpatient Note Addendum Reason: Additional Documentation Additional Information stable for discharge, hospitalist will sign off. Reconsult as need. thank you for this consultation Janiya Benavides MD Jul 16, 2016 08:11
[2016-07-19 10:08] LABS: BATH SALTS (MDPV) UR NEG (NEG); ECSTASY (MDMA) UR NEG (NEG); HEROIN (6-ACETYLMORPHINE) UR NEG (NEG); K2 SPICE UR NEG (NEG); OBMETHADONE UR NEG (NEG); OXYCODONE (PERCODAN) NEG (NEG); PHENCYCLIDINE URINE NEG (NEG)
== END 2016-07-16 16:01 | disposition home or self-care (01) | DRG 765 ==
LOC: HOBED 10:00 → H2EB 10:17 → H1EA 13:25
PROVIDERS: ADMIT Obstetrics & Gynecology; ATTEND Obstetrics & Gynecology
PROC: 10D00Z1 Extraction of Products of Conception, Low, Open Approach (ICD-10-PCS; principal; 2016-07-14)
DX: O45.93 Premature separation of placenta, unspecified, third trimester (principal); O24.32 Unspecified pre-existing diabetes mellitus in childbirth; O99.214 Obesity complicating childbirth; E11.9 Type 2 diabetes mellitus without complications; Z37.0 Single live birth; Z3A.37 37 weeks gestation of pregnancy; Z79.4 Long term (current) use of insulin; Z83.3 Family history of diabetes mellitus
CPT/HCPCS: 59025; 80053; 80307; 81001; 82805; 82948; 83036; 85025; 86850; 86900; 86901; 87086; 88307; 90707; 90715; 99285; G0481; J0131; J0690; J1885; J2274; J2405; J2590; J3010; J7120; Q0163